=== PATIENT | female | born 1940 | race Caucasian/White ===

== ENCOUNTER → 2017-02-03 | Outpatient (CLI) | payer OTHER, MEDICARE | LOC: FIMAGING 10:18 | PROVIDERS: ATTEND Family Medicine | DX: Z12.31 Encounter for screening mammogram for malignant neoplasm of breast (principal) | CPT/HCPCS: G0202 ==

== ENCOUNTER → 2017-08-31 | Outpatient (CLI) | payer OTHER, MEDICARE | LOC: GIMAGING 15:00 | PROVIDERS: ATTEND Family Medicine | DX: M47.896 Other spondylosis, lumbar region (principal); M16.0 Bilateral primary osteoarthritis of hip | CPT/HCPCS: 72100-PO; 72170-PO ==

== ENCOUNTER → 2018-03-05 | Outpatient (CLI) | payer OTHER, MEDICARE | LOC: FIMAGING 11:23 | PROVIDERS: ATTEND Family Medicine | DX: K57.90 Diverticulosis of intestine, part unspecified, without perforation or abscess without bleeding (principal); M51.35 Other intervertebral disc degeneration, thoracolumbar region; M12.88 Other specific arthropathies, not elsewhere classified, other specified site; K42.9 Umbilical hernia without obstruction or gangrene ==

== ENCOUNTER 2018-04-20 12:02 | Inpatient (IN) | payer OTHER, MEDICARE ==
[2018-04-20] MEDS ORDERED: NS 500 ML IV ONE (12:40)
--- NOTE | 2018-04-20 12:40 | EDPHY ---
H & P Time Seen by Provider: 04/20/18 12:28 HPI/ROS: CHIEF COMPLAINT: Syncope HISTORY OF PRESENT ILLNESS: The patient is an 78-year-old female with a history of left bundle branch block hypertension and atrial fibrillation who presents emergency department with a syncopal episode. Patient states she has been feeling weak for the past few days. She reports that she does not feel herself. She has had decreased energy and has been sleeping poorly. Today she was waiting for her son and signal supervisor to arrive when she developed some lightheadedness and dizziness. The she felt like she had a grab the door frame to keep herself upright and then sat down. Were son arrived she attempted to go downstairs and ended up sitting on the stairs because she felt poor. Her symptoms became worse. Her son states that she became unresponsive. Her eyes closed. She was not responding to their statements. The signal supervisor recommended that they call 911. The symptoms lasted approximately 1 min. Patient denies any chest pain or shortness of breath. She may have had diaphoresis. She has no symptoms now. She is not feeling lightheaded or dizzy. No focal weakness or numbness. REVIEW OF SYSTEMS: 10 systems were reveiwed and are negative with the exception of the elements mentioned in the history of present illness. Of note, the patient's review of systems she states her tongue his felt swollen for the past month. Past Medical/Surgical History: Includes left bundle branch block, hypertension, atrial fibrillation Social history: Patient lives at home. She does not smoke Smoking Status: Former smoker Physical Exam: 36.5, 147/82, 56, 16, 93% on room air GENERAL: Well-appearing, in no acute distress, alert. HEENT: Eyes normal to inspection, normal pharynx, no signs of dehydration. NECK: Normal, supple. RESPIRATORY: Clear to auscultation bilaterally, no rales, rhonchi or wheezing. CVS: Regular rate and rhythm, no rubs, murmurs, or gallops. ABDOMEN: Soft, nontender, nondistended, no organomegaly. BACK: Normal to inspection, no CVA tenderness. SKIN: Normal color, no rash, warm, dry. No pallor. EXTREMITIES: No pedal edema, no calf tenderness, no Homans sign or cords, no joint swelling. NEURO/PSYCH: Alert and oriented, normal mood and affect, normal motor sensory exam. No obvious cranial nerve deficit. Constitutional: Initial Vital Signs Temperature (C) 36.5 C 04/20/18 12:10 Heart Rate 56 L 04/20/18 12:10 Respiratory Rate 16 04/20/18 12:10 Blood Pressure 147/82 H 04/20/18 12:10 O2 Sat (%) 93 04/20/18 12:10 O2 Delivery Mode Room Air Allergies/Adverse Reactions: OCTAVIA Inhibitors Allergy (Verified 04/20/18 12:12) Home Medications: Medication Instructions Recorded Meloxicam 04/20/18 Metoprolol Tartrate [Metoprolol 04/20/18 Oral Susp (*)] Medical Decision Making - Diagnostics Imaging Results: Imaging Impressions Chest X-Ray 04/20/18 12:41 Impression: Right upper lobe density, suspicious for malignancy. Recommend chest CT with IV contrast for further evaluation. Results called to Dr. Macedo at 12:[address] 04/20/18 13:23 Impression:1. Possible pituitary mass. 2. Otherwise negative. No hemorrhage identified. Results called to Dr. Macedo at 1:48 PM General information for patients regarding this examination can be found at [email or web address] If you have questions or comments about this report, please contact me at [phone] (hospital) or [phone] (cell). ED Course/Re-evaluation: In the emergency department I discussed possible etiologies with the patient and son. I answered all her questions. IV was placed. Laboratory studies were obtained. Patient given normal saline 500 mL IV. EKG shows normal sinus rhythm, normal rate, normal axis, left bundle branch block. There are no ST or T-wave abnormalities. Patient has a normal white count. Patient is anemic with hematocrit 31. Chemistry panel is pending. Chest x-ray: Please refer the dictated report by Dr. Trevizo. I discussed the case with Dr. Trevizo. The patient has in right upper lobe density that is suspicious for malignancy. INR is normal. Chemistry panel is notable for slightly low CO2 of 18. Renal function is normal. The troponin is negative Head CT: Please refer the dictated report by Dr. Trevizo. The patient has a pituitary mass. No bleed. No other acute abnormality. The I discussed the results with the patient. I answered all her questions. Patient will be admitted for further observation.\ I discussed the case with Dr. Bruce. He will accept the patient. Differential Diagnosis: My differential includes but is not limited to dysrhythmia, ACS, acute OR, dehydration, electrolyte abnormality, sugar abnormality, CVA, dissection, aneurysm, mass - Data Points Laboratory Results: Laboratory Results 04/20/18 12:30 04/20/18 12:30 04/20/18 04/20/18 04/20/18 13:56 13:05 12:30 WBC RBC Hgb Hct MCV MCH MCHC RDW Plt Count MPV Neut % (Auto) Lymph % (Auto) Whitfield % (Auto) Eos % (Auto) Baso % (Auto) Nucleat RBC Rel Count Absolute Neuts (auto) Absolute Lymphs (auto) Absolute Monos (auto) Absolute Eos (auto) Absolute Basos (auto) Absolute Nucleated RBC Immature Gran % Immature Gran # PT 13.2 SEC SEC (12.0-15.0) INR 0.98 (0.83-1.16) APTT Pending Sodium Potassium Chloride Carbon Dioxide Anion Gap BUN Creatinine Estimated GFR Glucose Calcium Total Bilirubin AST ALT Alkaline Phosphatase POC Troponin I 0.00 ng/mL ng/mL (0.00-0.08) Total Protein Albumin Lipase Cancelled 04/20/18 04/20/18 04/20/18 12:30 12:30 12:30 WBC 7.50 10^3/uL 10^3/uL (3.80-9.50) RBC 3.37 10^6/uL L 10^6/uL (4.18-5.33) Hgb 10.5 g/dL L g/dL (12.6-16.3) Hct 31.4 % L % (38.0-47.0) MCV 93.2 fL fL (81.5-99.8) MCH 31.2 pg pg (27.9-34.1) MCHC 33.4 g/dL g/dL (32.4-36.7) RDW 13.2 % % (11.5-15.2) Plt Count 179 10^3/uL 10^3/uL (150-400) MPV 10.1 fL fL (8.7-11.7) Neut % (Auto) 71.8 % % (39.3-74.2) Lymph % (Auto) 18.8 % % (15.0-45.0) Whitfield % (Auto) 7.2 % % (4.5-13.0) Eos % (Auto) 1.7 % % (0.6-7.6) Baso % (Auto) 0.4 % % (0.3-1.7) Nucleat RBC Rel Count 0.0 % % (0.0-0.2) Absolute Neuts (auto) 5.38 10^3/uL 10^3/uL (1.70-6.50) Absolute Lymphs (auto) 1.41 10^3/uL 10^3/uL (1.00-3.00) Absolute Monos (auto) 0.54 10^3/uL 10^3/uL (0.30-0.80) Absolute Eos (auto) 0.13 10^3/uL 10^3/uL (0.03-0.40) Absolute Basos (auto) 0.03 10^3/uL 10^3/uL (0.02-0.10) Absolute Nucleated RBC 0.00 10^3/uL 10^3/uL (0-0.01) Immature Gran % 0.1 % % (0.0-1.1) Immature Gran # 0.01 10^3/uL 10^3/uL (0.00-0.10) PT REJ INR REJ APTT REJ Sodium 138 mEq/L mEq/L (135-145) Potassium 4.8 mEq/L mEq/L (3.5-5.2) Chloride 107 mEq/L mEq/L (97-110) Carbon Dioxide 18 mEq/l L mEq/l (22-31) Anion Gap 13 mEq/L mEq/L (6-14) BUN 20 mg/dL mg/dL (7-23) Creatinine 0.8 mg/dL mg/dL (0.6-1.0) Estimated GFR > 60 Glucose 104 mg/dL H mg/dL (70-100) Calcium 9.8 mg/dL mg/dL (8.5-10.4) Total Bilirubin 0.8 mg/dL mg/dL (0.1-1.4) AST 32 IU/L IU/L (14-46) ALT 21 IU/L IU/L (9-52) Alkaline Phosphatase 61 IU/L IU/L (38-126) POC Troponin I Total Protein 7.7 g/dL g/dL (6.3-8.2) Albumin 5.0 g/dL g/dL (3.5-5.0) Lipase 376 IU/L H IU/L (23-300) Medications Given: Discontinued Medications Sodium Chloride (Ns) 500 mls @ 1,000 mls/hr IV EDNOW ONE PRN Reason: Protocol Stop: 04/20/18 13:09 Last Admin: 04/20/18 12:59 Dose: 500 mls Point of Care Test Results: Chemistry 04/20/18 13:56 POC Troponin I 0.00 ng/mL ng/mL (0.00-0.08) Departure - Departure Disposition: [facility] Inpatient Acute Clinical Impression: Lung mass, Pituitary abnormality Syncope Qualifiers: Syncope type: unspecified Qualified Code(s): R55 - Syncope and collapse Condition: Good Referrals: Judith Modi MD [Primary Care Provider] - As per Instructions
[2018-04-20 12:54] LABS: PLATELET COUNT 179 10^3/uL (150-400)
[2018-04-20] MEDS ORDERED: ONDANSETRON 4 MG/2 ML VIAL IVP PRN (15:49)
[2018-04-20] MEDS ORDERED: ACETAMINOPHEN 325 MG TAB PO PRN (15:49)
[2018-04-20] MEDS ORDERED: ONDANSETRON DISINTEGRATING 4 MG TAB PO PRN (15:49)
--- NOTE | 2018-04-20 15:57 | PDGENHP ---
History and Physical - Chief Complaint syncope - History of Present Illness The patient is an 78-year-old female with a history of left bundle branch block hypertension and atrial fibrillation who presents with a syncopal episode. Patient states she has been feeling weak for the past few days. She reports that she does not feel herself. She has had decreased energy and has been sleeping poorly. Today she was waiting for her son and insulation packer to arrive when she developed some lightheadedness and dizziness. The she felt like she had a grab the door frame to keep herself upright and then sat down. Her son states that she became unresponsive. Her eyes closed. 911 was called. She was unresponsive for only about 30-60 seconds. She was back to normal prior to EMS arrival. There is no hx of sz or sz activity noted. There is no reported post ictal period. Patient denies any chest pain or shortness of breath. She may have had diaphoresis. She has no symptoms now. She is not feeling lightheaded or dizzy. No focal weakness or numbness. In the ER, CXR was concerning for RUL Mass and Brain CT was concerning for Pituitary mass. She has no focal deficits Past Medical/Surgical History: left bundle branch block, hypertension, atrial fibrillation Social history: Patient lives at home. She does not smoke STUDIES: Chest X-Ray 04/20/18 12:41 Impression: Right upper lobe density, suspicious for malignancy. Recommend chest CT with IV contrast for further evaluation. Head CT 04/20/18 13:23 Impression:1. Possible pituitary mass. 2. Otherwise negative. No hemorrhage identified. EKG shows normal sinus rhythm, normal rate, normal axis, left bundle branch block. There are no ST or T-wave abnormalities. History Information - Allergies/Home Medication List Allergies/Adverse Reactions: OCTAVIA Inhibitors Allergy (Verified 04/20/18 15:32) edema Home Medications: Herbals/Supplements -Info Only 1 ea PO DAILY 04/20/18 [Last Taken Unknown] LORazepam [Ativan (*)] 0.5 - 1 mg PO HS PRN 04/20/18 [Last Taken 04/19/18 0.5mg] Meloxicam 7.5 mg PO DAILY 04/20/18 [Last Taken 04/20/18] Metoprolol Tartrate [Lopressor 50 mg (*)] 50 mg PO BID 04/20/18 [Last Taken ] [place]-3 Fatty Acids [Fish Oil 1000 mg (*)] 1,000 mg PO DAILY 04/20/18 [Last Taken 04/20/18] I have personally reviewed and updated: medical history, social history - Social History Smoking Status: Former smoker Review of Systems Review of Systems: ROS: 10pt was reviewed & negative except for what was stated in HPI & below Physical Exam Physical Exam: Temp Pulse Resp BP Pulse Ox 36.5 C 63 18 119/62 94 04/20/18 12:10 04/20/18 14:21 04/20/18 14:21 04/20/18 14:21 04/20/18 14:21 Constitutional: no apparent distress Eyes: PERRL, EOMI Ears, Nose, Mouth, Throat: dry mucous membranes Cardiovascular: regular rate and rhythym Respiratory: no respiratory distress, no rales or rhonchi, clear to auscultation Gastrointestinal: normoactive bowel sounds, soft, non-tender abdomen Skin: warm Neurologic: AAOx3 Psychiatric: interacting appropriately, not anxious, not encephalopathic Lymph, Heme, Immunologic: No petechiae Lab Data & Imaging Review 04/20/18 12:30 04/20/18 12:30 WBC 7.50 10^3/uL (3.80-9.50) 04/20/18 12:30 RBC 3.37 10^6/uL (4.18-5.33) L 04/20/18 12:30 Hgb 10.5 g/dL (12.6-16.3) L 04/20/18 12:30 Hct 31.4 % (38.0-47.0) L 04/20/18 12:30 MCV 93.2 fL (81.5-99.8) 04/20/18 12:30 MCH 31.2 pg (27.9-34.1) 04/20/18 12:30 MCHC 33.4 g/dL (32.4-36.7) 04/20/18 12:30 RDW 13.2 % (11.5-15.2) 04/20/18 12:30 Plt Count 179 10^3/uL (150-400) 04/20/18 12:30 MPV 10.1 fL (8.7-11.7) 04/20/18 12:30 Neut % (Auto) 71.8 % (39.3-74.2) 04/20/18 12:30 Lymph % (Auto) 18.8 % (15.0-45.0) 04/20/18 12:30 Ashley % (Auto) 7.2 % (4.5-13.0) 04/20/18 12:30 Eos % (Auto) 1.7 % (0.6-7.6) 04/20/18 12:30 Baso % (Auto) 0.4 % (0.3-1.7) 04/20/18 12:30 Nucleat RBC Rel Count 0.0 % (0.0-0.2) 04/20/18 12:30 Absolute Neuts (auto) 5.38 10^3/uL (1.70-6.50) 04/20/18 12:30 Absolute Lymphs (auto) 1.41 10^3/uL (1.00-3.00) 04/20/18 12:30 Absolute Monos (auto) 0.54 10^3/uL (0.30-0.80) 04/20/18 12:30 Absolute Eos (auto) 0.13 10^3/uL (0.03-0.40) 04/20/18 12:30 Absolute Basos (auto) 0.03 10^3/uL (0.02-0.10) 04/20/18 12:30 Absolute Nucleated RBC 0.00 10^3/uL (0-0.01) 04/20/18 12:30 Immature Gran % 0.1 % (0.0-1.1) 04/20/18 12:30 Immature Gran # 0.01 10^3/uL (0.00-0.10) 04/20/18 12:30 PT REJ 04/20/18 13:05 INR REJ 04/20/18 13:05 APTT REJ 04/20/18 13:05 Sodium 138 mEq/L (135-145) 04/20/18 12:30 Potassium 4.8 mEq/L (3.5-5.2) 04/20/18 12:30 Chloride 107 mEq/L (97-110) 04/20/18 12:30 Carbon Dioxide 18 mEq/l (22-31) L 04/20/18 12:30 Anion Gap 13 mEq/L (6-14) 04/20/18 12:30 BUN 20 mg/dL (7-23) 04/20/18 12:30 Creatinine 0.8 mg/dL (0.6-1.0) 04/20/18 12:30 Estimated GFR > 60 04/20/18 12:30 Glucose 104 mg/dL (70-100) H 04/20/18 12:30 Calcium 9.8 mg/dL (8.5-10.4) 04/20/18 12:30 Total Bilirubin 0.8 mg/dL (0.1-1.4) 04/20/18 12:30 AST 32 IU/L (14-46) 04/20/18 12:30 ALT 21 IU/L (9-52) 04/20/18 12:30 Alkaline Phosphatase 61 IU/L (38-126) 04/20/18 12:30 POC Troponin I 0.00 ng/mL (0.00-0.08) 04/20/18 13:56 Total Protein 7.7 g/dL (6.3-8.2) 04/20/18 12:30 Albumin 5.0 g/dL (3.5-5.0) 04/20/18 12:30 Lipase 376 IU/L (23-300) H 04/20/18 12:30 Assessment & Plan Assessment: #Lung mass (Acute) #Pituitary abnormality (Acute) #Syncope (Acute) #LBBB, chronic #History of Afib, on a BB, not on AC or Aspirin #HTN, normotensive currently #Generalized Weakness #Reported Swollen Tongue #Anemia, normocytic #NAGMA Plan: Admission Tele, TTE Obtain Brain MRI, CT of chest W/u Anemia Cont Metoprolol for now, no current e/o bradycardia or hypotension Not on an ASA or AC, may need further evaluation pending w/u IVF PT/OT SCD's
--- NOTE | 2018-04-20 16:18 | ECHO ---
[email or web address] [address] [address] Main: [phone] Fax: Transthoracic Echocardiogram Name: JUDI ROSS MR#: [id number] Study Date: 04/20/2018 Study Time: 02:48 PM Date of : 1940 Age: 78 year(s) Height: 167.6 cm (66 in.) Weight: 70.31 kg (155 lb.) BSA: 1.79 m2 Gender: Female Examination: Echo Indication: Cardiac: syncope Image Quality: Adequate Contrast: Requested by: Wilver Bruce BP: 119 mmHg/92 mmHg Heart Rate: Rhythm: Indication: Cardiac: syncope Procedure Staff Dry Cell Battery Assembler: Tran Huertas RDCS Reading Physician: Steven Pak MD Requesting Provider: Conclusions: Normal global systolic LV function. EF is 61 %. Moderate mitral valve regurgitation is present. Mild aortic valve regurgitation is present. Mild to moderate tricuspid valve regurgitation. The pulmonary artery pressure is mildly increased. Mildly dilated ascending aorta measuring 4.0 cm. Measurements: Chambers Valvular Assessment AV/MV Valvular Assessment TV/PV Normal Normal Normal Name Value Range Name Value Range Name Value Range Ao Nichole (2D): 3.6 cm (1.4 cm-2.6 AV Vmax: 1.30 m/s (1 m/s-1.7 TR Vmax: 2.97 mm/s ( - ) cm) m/s) TR PGmax: 35 mmHg ( - ) IVSd (2D): 1.0 cm (0.6 cm-1.1 AV maxP mmHg ( - ) syst. PAP: 40 mmHg ( - ) cm) AV meanP mmHg ( - ) PV Vmax: 0.76 m/s (0.6 m/s-0.9 LVDd (2D): 4.2 cm (3.9 cm-5.3 LVOT Vmax: 1.18 m/s (0.7 m/s-1.1 m/s) cm) m/s) PV PGmax: 2 mmHg ( - ) LVDs (2D): 2.4 cm (2.1 cm-4 VANCE (Vmax): 3.1 cm2 ( - ) cm) VANCE (VTI): 3.2 cm ( - ) LVPWd (2D): 0.9 cm ( - ) MV E Vmax: 0.64 m/s ( - ) LVOTd 2.1 cm 2.1 cm mm MV A Vmax: 1.19 m/s ( - ) LVEF (BP): 61 % (>=55 %) MV E/A: 0.54 ( - ) RVDd(2D): 3.2 cm (1.9 cm-3.8 MV PHT: 0.128 s ( - ) cmmm) MVA (PHT): 1.7 s ( - ) Continued Measurements: Chambers Valvular Assessment AV/MV Valvular Assessment TV/PV Patient: JUDI ROSS Study Date: 04/20/2018 Page 1 of 2 02:48 PM Name Value Name Value Name Value LADs: 3.3 cm MV DecTime: 412 m/s CVP (est.): 5 mmHg LADs Lon.4 cm MV E/E' Septal: 13.70 LA Area: 13.5 cm2 MV E/E' Lateral: 10.80 LA Volume: 33 ml MR PISA radius: 6 mm LA Volume Index: 18.4 ml/m2 RA Area: 13.1 cm2 Additional Vessels Name Value Ao Ascendin.0 cm Inferior Vena Cava: 1.3 cm Findings: Left Ventricle: Normal size left ventricle. No LV hypertrophy. Normal global systolic LV function. EF is 61 %. No regional wall motion abnormality. Unable to assess diastolic dysfunction. Right Ventricle: Normal size right ventricle. Normal RV function. Left Atrium: The left atrium is normal in size. Right Atrium: The right atrium is normal in size. Mitral Valve: The mitral valve is normal in appearance and function. Moderate mitral valve regurgitation is present. No mitral stenosis is present. Aortic Valve: The aortic valve is tri-leaflet. Mild aortic valve regurgitation is present. No aortic valve stenosis is present. Tricuspid Valve: The tricuspid valve is normal in appearance and function. Mild to moderate tricuspid valve regurgitation. The pulmonary artery pressure is mildly increased. Right ventricular systolic pressure measures 40mmHg. Pulmonic Valve: The pulmonic valve is normal in appearance and function. There is no pulmonic regurgitation seen. Aorta: The aorta is normal. Normal size aortic root measuring 3.6 cm. Mildly dilated ascending aorta measuring 4.0 cm. IVC: The IVC is normal sized. Pericardium: Trivial pericardial effusion. (No Signature Object) Patient: JUDI ROSS Study Date: 04/20/2018 Page 2 of 2 02:48 PM [id number]
[2018-04-20 16:28] LABS: INR 1.01 (0.83-1.16); PROTIME(PATIENT) 13.5 SEC (12.0-15.0)
[2018-04-20] MEDS ORDERED: NS 1,000 ML IV SCH (18:00)
[2018-04-20] MEDS ORDERED: IOHEXOL 350mgI/ML (OMNIPAQUE) 150 ML BTL IV ONE (18:03)
[2018-04-20] MEDS: METOPROLOL TARTRATE 50 MG TAB PO SCH (19:56)
[2018-04-20] MEDS ORDERED: GADOBUTROL 10 ML VIAL IVP ONE (20:18)
[2018-04-20] MEDS: LORazepam 1 MG TAB PO PRN (20:37)
[2018-04-21 05:57] LABS: PLATELET COUNT 178 10^3/uL (150-400)
[2018-04-21] MEDS: METOPROLOL TARTRATE 50 MG TAB PO SCH ×2 (08:20→20:33)
[2018-04-21] MEDS ORDERED: Herbals/Supplements -Info Only PO SCH (09:00)
--- NOTE | 2018-04-21 10:32 | ASMTCMCOM ---
CM Note CM Note Notes: Patient admitted after syncopal episode. History of HTN. Mass suspicious for malignancy on CT. She is normally independent, has a son and daughter locally. PT went to eval and felt that she was at functional baseline. No CM needs identified; however, given the suspicious chest CT, we will follow for any d/c needs. Current CM Discharge plan: TBD Date Signed: 04/21/2018 10:32 AM Electronically Signed By:Vidhi Bertrand RN
--- NOTE | 2018-04-21 16:34 | HOSPPROG ---
Hospitalist Progress Note Assessment/Plan: 78 year old female with pmh of paroxysmal afib, HTN admitted with syncope, and found to have multiple lung masses Syncope- patient had a 30 day event monitor recently with no findings ever recorded, this was wiht Dr. Smith. she no longer has a cardiology. TTE today was unremarkable. BP has been mostly elevated on lopressor and HR in the 60s. No events on telemetry -cont tele -cont lopressor -follow up with PCP and cards Lung masses- multiple masses in right and left lung found. Largest is RUL mass. Discussed case with radiology, and will order CT guided biopsy for am, she has a mass on her SVC that could progress to SVC syndrome. -NPO at or -am coags -CT guided biopsy in am -discussed case with oncology who will see patient Hx of afib- patient says she had 1 episode, ever, of afib, and was then started on lopressor and a blood thinner. She had some sort of bleeding episode in her leg and so the anticoagulant was held and now she says she takes an asa. CAHDS vasc is 4. 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 No compression of optic chiasm. monitor PPX- SCDs, hold lovenox tonight Fluids- none Lytes- WNL Nutrition- NPO at TX Cor- Full DIspo- inpatient for lung mass, syncope, Subjective: patient feels fine. Objective: Vital Signs Temp Pulse Resp BP Pulse Ox 36.7 C 69 20 164/97 H 97 04/21/18 15:50 04/21/18 15:50 04/21/18 15:50 04/21/18 15:50 04/21/18 15:50 Laboratory Results 04/21/18 05:22 04/21/18 05:22 04/20/18 04/21/18 04/22/18 05:59 05:59 05:59 Intake Total 1040 Balance 1040 PT 13.5 SEC (12.0-15.0) 04/20/18 15:02 INR 1.01 (0.83-1.16) 04/20/18 15:02 - Physical Exam Constitutional: no apparent distress, appears nourished, not in pain Eyes: PERRL, anicteric sclera, EOMI Ears, Nose, Mouth, Throat: moist mucous membranes, hearing normal, ears appear normal, no oral mucosal ulcers Cardiovascular: regular rate and rhythym, no murmur, rub, or gallop Respiratory: no respiratory distress, no rales or rhonchi, clear to auscultation Gastrointestinal: normoactive bowel sounds, soft, non-tender abdomen, no palpable masses Genitourinary: no bladder fullness, no bladder tenderness, no renal bruits Skin: no rashes or abrasions, no fluctuance, no induration Musculoskeletal: full muscle strength, no muscle tenderness, normal joint ROM Neurologic: AAOx3, sensation intact bilaterally Psychiatric: interacting appropriately, not anxious, not encephalopathic, thought process linear Lymph, Heme, Immunologic: no cervical LAD, no supraclavicular LAD ICD10 Worksheet Patient Problems: Problems Problem Status Onset Lung mass Acute Pituitary abnormality Acute Syncope Acute
[2018-04-21] MEDS ORDERED: ENOXAPARIN 40 MG/0.4 ML SYR SC SCH (17:45)
--- NOTE | 2018-04-21 20:34 | GCON ---
[f rep st] CONSULTATION ONCOLOGY CONSULTATION DATE OF CONSULTATION: 04/21/2018 REASON FOR CONSULTATION: Pulmonary masses, suspect primary lung cancer. HISTORY OF PRESENT ILLNESS: The patient is a pleasant 78-year-old female who presented to [facility] yesterday following a syncopal episode at home. She evidently became unresponsive. 911 was called. She regained consciousness after approximately 1 minute. Neuro-imaging revealed an incidental finding of a pituitary microadenoma, but no cause for her syncope. (7.6 x 6.9 x 9.8 mm hy pointense microadenoma in the central pituitary). The patient had a CT of the chest performed to exclude pulmonary embolism. The CT revealed multiple bilateral pulmonary nodules. There was a 3.5 x 2.5 cm mass in the right peritracheal region with francisco e narrowing of the SVC with associated tumor thrombus extending into the SVC. There was a small, non occlusive thrombus in the subsegmental branch of the right lower lobe. The patient was informed of t findings. She is scheduled to have a CT-guided biopsy of her dominant pulmonary mass tomorrow chelsey susi. She reports that overall she has felt well. She denies chest pain, cough, or hemoptysis. She denies exertional dyspnea. She denies recent weight loss. She denies abdominal pain or bloating. The patient did have a CT of the abdomen and pelvis without contrast performed on March 05, 2018, that revealed no evidence of intraabdominal mass. When seen this evening, she is accompanied by her son and grandson. PAST MEDICAL HISTORY: 1. Left bundle branch block. 2. Hypertension. 3. Atrial fibrillation. SOCIAL HISTORY: The patient is single. She has a son and daughter who live locally. She is retired , previously working for a local [employer]. She is a former smoker for approximately 20 y ears, quitting in her 40s. REVIEW OF SYSTEMS: As outlined above. Remainder of 12-point review of systems otherwise negative. PHYSICAL EXAM: GENERAL: The patient is sitting comfortably in a chair. She is in no acute distress . HEENT: Pupils equal, sclerae nonicteric. Conjunctivae normal. No palpable submandibular, cervic al, or supraclavicular adenopathy. HEART: Regular without murmur. LUNGS: Clear bilaterally. No w heeze, rhonchi, or crackles. ABDOMEN: Soft, nontender, nondistended with no organomegaly or mass. No extremity swelling or edema. The patient has no facial swelling. She is alert, oriented, and dee ropriate with fluent speech. IMAGING STUDIES: As outlined above. LABORATORY STUDIES: White count 5.2, hemoglobin of 10.4, hematocrit 29.5, platelet count is 178,000. Sodium 135, potassium 4.0, chloride 106, bicarb 24, BUN 15, creatinine 0.7, calcium 8.9, magnesium 2.1. Bilirubin 0.8, AST 32, ALT 21, alkaline phosphatase 61. IMPRESSION: 1. Bilateral pulmonary nodules with dominant mass in the right upper lobe. 2. 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 3. Small nonocclusive pulmonary embolus, right lower lobe. 4. Syncopal episode of unclear etiology. 5. Incidental finding of pituitary microadenoma. The patient is a pleasant 78-year-old female who presented with a syncopal episode. There is no naomi r cause for her syncope and she has not had recurrent symptoms. Her MRI showed no brain lesions. Sh e does have an incidental finding of a pituitary microadenoma which will be managed conservatively. The patient has a right upper lobe mass with compression of the SVC and possible tumor thrombus in th e SVC. There are multiple other pulmonary nodules. These findings were reviewed with the patient an d her family members. These are highly concerning for a primary lung carcinoma. I agree with the plan for CT-guided biopsy of her primary mass tomorrow. Given that she has evidence of a probable prior PE and has evidence of tumor thrombus involving the S VC, I would favor starting her on Lovenox 1 mg/kg subcutaneously twice daily once she has completed h er biopsy. She will be started on prophylactic dose Lovenox this evening. She could potentially be discharged after her biopsy with planned followup in the outpatient Oncology setting next week to review her pathologic diagnosis. A treatment plan would be formulated at that time based on her biopsy results. She would likely benefit from an outpatient PET-CT to complete her staging. This plan was discussed in detail with the patient and her family members. They asked multiple quest ions which were answered. I was able to discuss her case also with Dr. Zaidi of the hospitalist service. Our office w ill arrange for outpatient oncology followup next week. Total time for today's visit was approximately 60 minutes of which greater than 50% was spent in coun seling and care coordination. /[id number]/MODL
[2018-04-21] MEDS: LORazepam 1 MG TAB PO PRN (22:06)
[2018-04-22 05:52] LABS: PLATELET COUNT 192 10^3/uL (150-400)
[2018-04-22 06:00] LABS: INR 1.04 (0.83-1.16); PROTIME(PATIENT) 13.8 SEC (12.0-15.0)
[2018-04-22] MEDS: METOPROLOL TARTRATE 50 MG TAB PO SCH ×2 (08:11→19:52)
[2018-04-22] MEDS ORDERED: MIDAZOLAM 2 MG/2 ML VIAL IVP PRN (10:53)
[2018-04-22] MEDS ORDERED: NALOXONE HCL 0.4 MG/ML INJ IVP PRN (10:53)
[2018-04-22] MEDS ORDERED: fentaNYL 100 MCG/2 ML INJ IVP PRN (10:53)
[2018-04-22] MEDS ORDERED: MEPERIDINE 25 MG/ML SYR IVP PRN (10:53)
[2018-04-22] MEDS ORDERED: FLUMAZENIL 0.5 MG/5 ML MDV IVP PRN (10:53)
[2018-04-22] MEDS ORDERED: NS 1,000 ML IV SCH (11:00)
[2018-04-22] MEDS ORDERED: LIDOCAINE 1% 300 MG/30 ML SDV ONE (11:16)
--- NOTE | 2018-04-22 12:26 | PDRADPN ---
Radiology Procedure Note Date of Procedure: 04/22/18 Radiologist: Mindy Dawn Anesthesia: Local (Specify) (lidocaine) Pre-op Diagnosis: RUL mass Post-op Diagnosis: same Procedure: CT guided biopsy Inf/Abcess present in the surg proc area at time of surgery?: No
--- NOTE | 2018-04-22 13:04 | PDMN ---
Medical Necessity Medical necessity: Pt meets IP criteria as of 04/21/2018 per and [facility] MG-PUL ( Pulmonary Disease GRG); est los > 2 mn for ongoing management and tx of multiple lung masses noted on imaging as well as syncopal episode with unknown etiology; requiring further work up, oncology consultation, cardiac monitoring, IR consultation with planned CT guided bx, and management of other conditions including afib and pituitary adenoma.
[2018-04-22] MEDS ORDERED: hydrALAZINE 20 MG/ML VIAL IVP PRN (14:19)
--- NOTE | 2018-04-22 15:43 | HOSPPROG ---
Hospitalist Progress Note Assessment/Plan: 78 year old female with pmh of paroxysmal afib, HTN admitted with syncope, and found to have multiple lung masses. Biopsy today. If no PTX dc in am. Syncope- patient had a 30 day event monitor recently with no findings ever recorded, this was wiht Dr. Smith. 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 TTE this admission was unremarkable. BP has been mostly elevated on lopressor and HR in the 60s. No events on telemetry -cont tele -cont lopressor -follow up with PCP and cards as outpatient. Lung masses- multiple masses in right and left lung found. Largest is RUL mass. Discussed case with radiology, and will order CT guided biopsy for am, she has a mass on her SVC that could progress to SVC syndrome. -Biopsy today -CXR ordered for after biopsy to ensure no pneumo -oncology has consulted. -will need to start on lovenox, either at 1g per Kg or for prevention. patient is apprehensive to start higher dose due to history of bleeding. Will start lovenox at 40mg daily for now. Hx of afib- patient says she had 1 episode, ever, of afib, and was then started on lopressor and a blood thinner. She had some sort of bleeding episode in her leg and so the anticoagulant was held and now she says she takes an asa. CAHDS vasc is 4. -cont tele -hold asa for procedure -cont lopressor -restart asa after Pituitary adenoma- microadenoma, incidentally noted on MRI brain. No compression of optic chiasm. monitor HTN- on lopressor 50 mg bid, still hypertensive. Will add hydralazine PRN for elavated systolic. PPX- SCDs, restart lovenox Fluids- none Lytes- WNL Nutrition-regular diet Cor- Full DIspo- inpatient for lung mass, syncope, likely dc in am, Subjective: no complaints. Objective: Vital Signs Temp Pulse Resp BP Pulse Ox 37.2 C 67 16 159/95 H 93 04/22/18 14:10 04/22/18 14:10 04/22/18 14:10 04/22/18 14:10 04/22/18 14:10 Laboratory Results 04/22/18 05:12 04/22/18 05:12 04/21/18 04/22/18 04/23/18 05:59 05:59 05:59 Intake Total 1040 800 Balance 1040 800 PT 13.8 SEC (12.0-15.0) 04/22/18 05:12 INR 1.04 (0.83-1.16) 04/22/18 05:12 - Physical Exam Constitutional: no apparent distress, appears nourished, not in pain Eyes: PERRL, anicteric sclera, EOMI Ears, Nose, Mouth, Throat: moist mucous membranes, hearing normal, ears appear normal, no oral mucosal ulcers Cardiovascular: regular rate and rhythym, no murmur, rub, or gallop Respiratory: no respiratory distress, no rales or rhonchi, clear to auscultation Gastrointestinal: normoactive bowel sounds, soft, non-tender abdomen, no palpable masses Genitourinary: no bladder fullness, no bladder tenderness, no renal bruits Skin: no rashes or abrasions, no fluctuance, no induration Musculoskeletal: full muscle strength, no muscle tenderness, normal joint ROM Neurologic: AAOx3, sensation intact bilaterally Psychiatric: interacting appropriately, not anxious, not encephalopathic, thought process linear Lymph, Heme, Immunologic: no cervical LAD, no supraclavicular LAD ICD10 Worksheet Patient Problems: Problems Problem Status Onset Lung mass Acute Pituitary abnormality Acute Syncope Acute
[2018-04-22] MEDS: LORazepam 1 MG TAB PO PRN (21:34)
[2018-04-23 08:10] VITALS: BP 140/86
[2018-04-23] MEDS: METOPROLOL TARTRATE 50 MG TAB PO SCH (08:10)
[2018-04-23] MEDS ORDERED: ENOXAPARIN 80 MG/0.8 ML SYR SC ONE (12:15)
--- NOTE | 2018-04-24 03:25 | GDS ---
[f rep st] DISCHARGE SUMMARY DISCHARGE DIAGNOSES: 1. Multiple lung masses concerning for malignancy. 2. Syncope. 3. History of paroxysmal atrial fibrillation. 4. Pituitary adenoma. 5. Hypertension. 6. Small nonocclusive pulmonary embolus subsegmental branches of right lower lobe, indeterminate age, severe narrowing of the SVC, possible thrombus. 7. Left bundle branch block. PROCEDURE: Lung biopsy 04/22/2018. CONSULTATIONS: Oncology, Interventional Radiology. HISTORY OF PRESENT ILLNESS: An 78-year-old female with hypertension, left bundle branch block, paroxysmal atrial fibrillation presented with syncopal episode. Raymond weak for the last couple days, just not feeling like herself. She has been sleeping poorly. She was waiting for her son, regine, to arrive when she developed lightheaded and dizziness, tried to grab the door frame to keep herself upright. Her son said she became unresponsive for 30 to 60 seconds. Denies any prodromal chest pain, shortness of breath, palpitations. HOSPITAL COURSE BY PROBLEM: 1. Syncope. Recently had 30-day internal audit consultant without arrhythmias noted. TTE here with normal LV function. No significant aortic stenosis. Heart rate has been stable on Lopressor. 2. Multiple lung masses: Status post biopsy. She will follow up with [facility]. She has a narrowing of the SVC, which could be a mass versus thrombus. 3. Subsegmental pulmonary embolism, indeterminate age: Lovenox BID 4. History of paroxysmal atrial fibrillation: CHADS-VASc score 4. Previously on Eliquis and states she had a "bleeding episode in her leg," so Eliquis was held and now only takes an aspirin. I had a lengthy discussion with she and her daughter stating risks and they are willing to proceed with Lovenox. 5. Pituitary microadenoma: Incidentally found on MRI brain. 6. Hypertension. Continue Lopressor. Blood pressures have been elevated here. She attributes to anxiety. I advised her to keep a log 3 times a day and follow up with her PCP. 7. Patient is stable for discharge home. FOLLOWUP: 1. CC for biopsy results. 2. PCP. 3. Blood pressure check. Labs pending. Lung biopsy. MEDICATIONS: See medication reconciliation. PHYSICAL EXAMINATION: VITAL SIGNS: Today, temperature 36.1, blood pressure 148 /60, heart rate is in 60s, respirations 18, 93% on room air. GENERAL: She is smiling, well appearing, no acute distress. HEENT: PERRLA. Moist mucous membranes. CV: Regular rate and rhythm. LUNGS: Clear. ABDOMEN: Soft, nontender, nondistended. Positive bowel sounds. : No Roblero. MUSCULOSKELETAL: Moving all 4 extremities. NEURO: 2 through 12 intact. Psych : Alert and oriented x3. TIME SPENT ON DISCHARGE: Greater than 30 minutes bedside with patient and daughter explaining medications, followup plan. /[id number]/MODL MTDD
--- NOTE | 2018-04-24 22:34 | CPEKG ---
Test Reason : OPEN Blood Pressure : / mmHG Vent. Rate : 052 BPM Atrial Rate : 052 BPM P-R Int : 206 ms QRS Dur : 136 ms QT Int : 505 ms P-R-T Axes : 027 -43 122 degrees QTc Int : 470 ms Sinus rhythm Left bundle branch block Confirmed by Adal Manley ([id number]) on 04/24/2018 10:34:18 PM Referred By: PHYSICIAN ED Confirmed By:Adal Manley
== END 2018-04-23 12:30 | disposition home or self-care (01) | DRG 180 ==
LOC: EDUNIT# → OBSVTOIN 14:50 → F1N 17:24
PROVIDERS: ADMIT Family Medicine; ATTEND Family Medicine
PROC: 0BBC3ZX Excision of Right Upper Lung Lobe, Percutaneous Approach, Diagnostic (ICD-10-PCS; principal; 2018-04-22)
DX: C34.11 Malignant neoplasm of upper lobe, right bronchus or lung (principal); I26.99 Other pulmonary embolism without acute cor pulmonale; R55 Syncope and collapse; I44.7 Left bundle-branch block, unspecified; I48.91 Unspecified atrial fibrillation; D35.2 Benign neoplasm of pituitary gland; I10 Essential (primary) hypertension; E86.9 Volume depletion, unspecified; D64.9 Anemia, unspecified; Z87.891 Personal history of nicotine dependence
CPT/HCPCS: 82607-90; 84484-ER; A9585; G0378; J1650; J2250; J2310; J3010; Q9967

== ENCOUNTER 2018-05-17 07:11 | Emergency (ER) | payer OTHER, MEDICARE ==
[2018-05-17] MEDS ORDERED: NS 1,000 ML IV ONE (07:39)
--- NOTE | 2018-05-17 07:39 | EDPHY ---
H & P Time Seen by Provider: 05/17/18 07:21 HPI/ROS: Chief complaint. Malaise, difficulty breathing HPI. Patient is an 78-year-old female presents emergency department with complaint that she is having a hard time breathing and has continued and increasing swelling of her face and neck. She was seen in our emergency department April 20 after syncopal episode and was found that she had right upper lobe mass and apparent narrowing of the superior vena cava. Her head CT showed possible pituitary mass. Patient began radiation for lung cancer 5 days ago. Yesterday she had fatigue. Today she complains of increasing and continuing swelling of her face and neck. Uncomfortable breathing in her neck. No chest pain. No fever or cough. Abdominal pain that is bilateral and low for the last 2-3 days. Constipation which she took medication for an is turn to diarrhea. She continues to have crampy low abdominal pain. Denies urinary symptoms. No nausea or vomiting. No fever. ROS 10 systems were reviewed and negative with the exception of the elements mentioned in the history of present illness Past Medical/Surgical History: Left bundle branch block, hypertension, atrial fibrillation, recent diagnosis of lung cancer and pituitary tumor Social History: Single, nonsmoker, no alcohol Smoking Status: Former smoker Physical Exam: General Appearance: Alert well-developed female mild distress. Vital signs are stable Eyes: Pupils equal and round no pallor or injection. ENT, face is puffy. Oropharynx without injection; voice is somewhat hoarse; no stridor Respiratory: There are no retractions, lungs are clear to auscultation. Cardiovascular: Regular rate and rhythm. Gastrointestinal: Abdomen is soft with bilateral low abdominal tenderness. No masses. Normal bowel sounds Neurological: Awake and alert, sensory and motor exams grossly normal. Skin: Warm and dry, no rashes. Musculoskeletal: Neck is supple nontender. Extremities symmetrical, full range of motion. Psychiatric: Patient is oriented X 3, there is no agitation. Constitutional: Initial Vital Signs Temperature (C) 36.5 C 05/17/18 07:11 Heart Rate 94 05/17/18 07:11 Respiratory Rate 16 05/17/18 07:11 Blood Pressure 126/90 H 05/17/18 07:11 O2 Sat (%) 94 05/17/18 07:11 O2 Delivery Mode Room Air Allergies/Adverse Reactions: OCTAVIA Inhibitors Allergy (Verified 04/20/18 15:32) edema Home Medications: Medication Instructions Recorded Herbals/Supplements -Info Only 1 ea PO DAILY 04/20/18 LORazepam [Ativan (*)] 0.5 - 1 mg PO HS PRN 04/20/18 Metoprolol Tartrate [Lopressor 50 50 mg PO BID 04/20/18 mg (*)] Acetaminophen [Tylenol 325mg (*)] 650 mg PO Q4HRS PRN tab 04/23/18 Xarelto 05/17/18 levOFLOXACIN [levAQUIN (*)] 750 mg PO DAILY #10 tab 05/17/18 metroNIDAZOLE [Flagyl 500 mg (*)] 500 mg PO QID #28 tab 05/17/18 Medical Decision Making - Diagnostics EKG Interpretation: EKG interpreted by me shows normal sinus sinus rhythm. Normal interval. Left axis deviation. Left bundle branch block. QRS otherwise normal. Some lateral T-wave changes. No ST elevation or depression. No arrhythmia. The rate is 66 Not changed from previous EKG April 2018 Imaging Results: Imaging Impressions Chest/Thorax CTA 05/17/18 07:40 Impression: 1. 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 2. No definite pulmonary thromboemboli. 3. New small bilateral pleural effusions. 4. Right upper lobe spiculated mass consistent with bronchogenic carcinoma with additional left upper lobe spiculated mass and left lower lobe pulmonary nodule either representing additional bronchogenic carcinoma or metastasis. 5. 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 Findings and recommendations discussed with Emergency Department physician, Taqueria Oglesby, at 1000 hours, 05/17/2018. Final report concurs with initial preliminary interpretation. A test result has been communicated to a licensed care provider and documented in the [employer] Critical Result system on 05/17/2018 10:53, Message ID [id number]. Abdomen CT 05/17/18 07:41 Impression: 1. Acute sigmoid diverticulitis with a 1.5 cm pericolonic abscess. 2. Periumbilical abdominal wall hernia with mesenteric fat. 3. No definite hepatic metastasis. 4. Left iliac metastasis. Findings and recommendations discussed with Emergency Department physician, Taqueria Oglesby, at 1000 hours, 05/17/2018. Final report concurs with initial preliminary interpretation. Neck CTA 05/17/18 07:42 Impression: 1. 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 2. No evidence of carotid or vertebral flow-limiting stenosis, occlusion or dissection. 3. Mild atherosclerotic disease in the left internal carotid artery. Measurement of carotid stenosis is based on the residual internal carotid diameter with [place] Symptomatic Carotid Endarterectomy Trial (NASCET) based stenosis levels. Findings and recommendations discussed with Emergency Department physician, Taqueria Oglesby at 1000 hour, 05/17/2018. Final report concurs with initial preliminary interpretation. CT chest and neck shows superior vena cava syndrome with entrapment stenosis by Trauma tumor of the trachea and superior vena cava. Small bilateral pleural effusions. Lung masses noted CT abdomen and pelvis reviewed by me and discussed with Radiology shows diverticulitis with small abscess Procedures: IV normal saline, monitor ED Course/Re-evaluation: Consulted discussed the case with Dr. Deluna Oncology radiation. He recommends having the patient come over for radiation treatment. Patient is offered admission. She would prefer outpatient management of her diverticulitis and to be discharged to get her radiation therapy today. She is encouraged to return for worsening symptoms. Differential Diagnosis: Newly diagnosis of lung tumor in April. 5 days of radiation treatment. She has had superior vena cava syndrome diagnosed initially because of the location of the tumor. He does not appear to be worse today. She had abdominal pain as well and CT shows diverticulitis with abscess - Data Points Laboratory Results: Laboratory Results 05/17/18 07:29 05/17/18 07:29 05/17/18 05/17/18 05/17/18 08:50 07:48 07:29 WBC RBC Hgb Hct MCV MCH MCHC RDW Plt Count MPV Neut % (Auto) Lymph % (Auto) [place] % (Auto) Eos % (Auto) Baso % (Auto) Nucleat RBC Rel Count Absolute Neuts (auto) Absolute Lymphs (auto) Absolute Monos (auto) Absolute Eos (auto) Absolute Basos (auto) Absolute Nucleated RBC Immature Gran % Immature Gran # PT INR D-Dimer Sodium 133 mEq/L L mEq/L (135-145) Potassium 3.7 mEq/L mEq/L (3.5-5.2) Chloride 96 mEq/L L mEq/L (97-110) Carbon Dioxide 24 mEq/l mEq/l (22-31) Anion Gap 13 mEq/L mEq/L (6-14) BUN 10 mg/dL mg/dL (7-23) Creatinine 0.7 mg/dL mg/dL (0.6-1.0) Estimated GFR > 60 Glucose 112 mg/dL H mg/dL (70-100) Calcium 9.2 mg/dL mg/dL (8.5-10.4) Total Bilirubin 0.6 mg/dL mg/dL (0.1-1.4) Conjugated Bilirubin 0.3 mg/dL mg/dL (0.0-0.5) Unconjugated Bilirubin 0.3 mg/dL mg/dL (0.0-1.1) AST 20 IU/L IU/L (14-46) ALT 29 IU/L IU/L (9-52) Alkaline Phosphatase 80 IU/L IU/L (38-126) POC Troponin I 0.01 ng/mL ng/mL (0.00-0.08) Total Protein 7.1 g/dL g/dL (6.3-8.2) Albumin 4.5 g/dL g/dL (3.5-5.0) Lipase 268 IU/L IU/L (23-300) Urine Color YELLOW Urine Appearance HAZY Urine pH 5.0 (5.0-7.5) Ur Specific [place] 1.016 (1.002-1.030) Urine Protein NEGATIVE (NEGATIVE) Urine Ketones NEGATIVE (NEGATIVE) Urine Blood NEGATIVE (NEGATIVE) Urine Nitrate NEGATIVE (NEGATIVE) Urine Bilirubin NEGATIVE (NEGATIVE) Urine Urobilinogen NEGATIVE EU EU (0.2-1.0) Ur Leukocyte Esterase NEGATIVE (NEGATIVE) Urine RBC NONE SEEN /hpf /hpf (0-3) Urine WBC 1-3 /hpf /hpf (0-3) Ur Epithelial Cells TRACE /lpf /lpf (NONE-1+) Urine Mucus 2+ /lpf H /lpf (NONE-1+) Urine Glucose NEGATIVE (NEGATIVE) 05/17/18 05/17/18 07:29 07:29 WBC 7.20 10^3/uL 10^3/uL (3.80-9.50) RBC 3.45 10^6/uL L 10^6/uL (4.18-5.33) Hgb 11.3 g/dL L g/dL (12.6-16.3) Hct 31.5 % L % (38.0-47.0) MCV 91.3 fL fL (81.5-99.8) MCH 32.8 pg pg (27.9-34.1) MCHC 35.9 g/dL g/dL (32.4-36.7) RDW 13.2 % % (11.5-15.2) Plt Count 266 10^3/uL 10^3/uL (150-400) MPV 9.7 fL fL (8.7-11.7) Neut % (Auto) 80.5 % H % (39.3-74.2) Lymph % (Auto) 10.4 % L % (15.0-45.0) [place] % (Auto) 6.4 % % (4.5-13.0) Eos % (Auto) 1.7 % % (0.6-7.6) Baso % (Auto) 0.4 % % (0.3-1.7) Nucleat RBC Rel Count 0.0 % % (0.0-0.2) Absolute Neuts (auto) 5.80 10^3/uL 10^3/uL (1.70-6.50) Absolute Lymphs (auto) 0.75 10^3/uL L 10^3/uL (1.00-3.00) Absolute Monos (auto) 0.46 10^3/uL 10^3/uL (0.30-0.80) Absolute Eos (auto) 0.12 10^3/uL 10^3/uL (0.03-0.40) Absolute Basos (auto) 0.03 10^3/uL 10^3/uL (0.02-0.10) Absolute Nucleated RBC 0.00 10^3/uL 10^3/uL (0-0.01) Immature Gran % 0.6 % % (0.0-1.1) Immature Gran # 0.04 10^3/uL 10^3/uL (0.00-0.10) PT 13.4 SEC SEC (12.0-15.0) INR 1.06 (0.83-1.16) D-Dimer 1.00 ug/mLFEU H ug/mLFEU (0.00-0.50) Sodium Potassium Chloride Carbon Dioxide Anion Gap BUN Creatinine Estimated GFR Glucose Calcium Total Bilirubin Conjugated Bilirubin Unconjugated Bilirubin AST ALT Alkaline Phosphatase POC Troponin I Total Protein Albumin Lipase Urine Color Urine Appearance Urine pH Ur Specific [place] Urine Protein Urine Ketones Urine Blood Urine Nitrate Urine Bilirubin Urine Urobilinogen Ur Leukocyte Esterase Urine RBC Urine WBC Ur Epithelial Cells Urine Mucus Urine Glucose Medications Given: Discontinued Medications Sodium Chloride (Ns) 1,000 mls @ 0 mls/hr IV ONCE ONE; Wide Open PRN Reason: Protocol Stop: 05/17/18 07:40 Last Admin: 05/17/18 07:50 Dose: 1,000 mls Point of Care Test Results: Chemistry 05/17/18 07:48 POC Troponin I 0.01 ng/mL ng/mL (0.00-0.08) Departure - Departure Disposition: Home, Routine, Self-Care Clinical Impression: Diverticulitis, Superior vena cava syndrome Lung cancer Qualifiers: Laterality: unspecified laterality Lung location: upper lobe of lung Qualified Code(s): C34.10 - Malignant neoplasm of upper lobe, unspecified bronchus or lung Condition: Good Instructions: Diverticulitis (ED), Diverticulitis Diet (ED) Additional Instructions: Go to radiation oncology this morning Antibiotics for your abdominal pain and diverticulitis Return for worsening abdominal pain, fever. Return for worsening facial swelling or difficulty breathing Referrals: Judith Modi MD [Primary Care Provider] - 2-3 days without fail Prescriptions: levOFLOXACIN [levAQUIN (*)] 750 mg PO DAILY #10 tab metroNIDAZOLE [Flagyl 500 mg (*)] 500 mg PO QID #28 tab
[2018-05-17 07:53] LABS: PLATELET COUNT 266 10^3/uL (150-400)
--- NOTE | 2018-05-17 08:01 | CPEKG ---
Test Reason : OPEN Blood Pressure : / mmHG Vent. Rate : 066 BPM Atrial Rate : 066 BPM P-R Int : 187 ms QRS Dur : 133 ms QT Int : 429 ms P-R-T Axes : 021 -34 127 degrees QTc Int : 450 ms Sinus rhythm Left bundle branch block Confirmed by Yesenia Oglesby ([id number]) on 05/17/2018 8:00:47 AM Referred By: YESENIA OGLESBY Confirmed By:Yesenia Oglesby
[2018-05-17 08:10] LABS: INR 1.06 (0.83-1.16); PROTIME(PATIENT) 13.4 SEC (12.0-15.0)
[2018-05-17] MEDS ORDERED: IOPAMIDOL (ISOVUE 370) 100 ML BTL IV ONE (08:35)
[2018-05-17 11:09] VITALS: BP 132/78
== END 2018-05-17 11:09 | disposition home or self-care (01) ==
LOC: EDUNIT#
DX: K57.92 Diverticulitis of intestine, part unspecified, without perforation or abscess without bleeding (principal); I87.1 Compression of vein; C34.10 Malignant neoplasm of upper lobe, unspecified bronchus or lung
CPT/HCPCS: 70498; 71275; 74177; 93005; 99285; Q9967; 84484-ER